=== PATIENT | female | born 1990 | race African-American/Black ===

== ENCOUNTER 2022-08-31 02:19 | Inpatient (IN) | payer MEDICAID, OTHER ==
[~2022-08-31] VITALS: Ht 162.6 cm; Wt 109.9 kg
[2022-08-31 03:21] LABS: BASOPHILS % 0.7 % (0.0-2.0); EOSINOPHILS % 2.1 % (0.0-5.0); HEMATOCRIT. 35.5 % (36.0-48.0); HEMOGLOBIN. 11.6 g/dL (12.0-16.0); LYMPHOCYTES % 28.5 % (20.0-50.0); MEAN CORPUSCULAR VOLUME 82.8 fL (81.0-99.0); MONOCYTES % 7.7 % (2.0-8.0); PLATELET 348 x1000/uL (130-400); RED BLOOD CELL COUNT 4.29 mill/uL (4.2-5.4); RED CELL DISTRIBUTION WIDTH 14.8 % (11.6-14.6)
[2022-08-31 03:33] LABS: CHLORIDE 110 mEq/L (98-107)
[2022-08-31] MEDS ORDERED: IBUPROFEN 400MG TABLET PO ONE (09:30)
[2022-08-31] MEDS ORDERED: METOCLOPRAMIDE HCL 10MG TABLET PO ONE (09:30)
[2022-08-31 12:31] LABS: CLARITY URINE CLEAR (CLEAR); COLOR URINE YELLOW (YELLOW); KETONES URINE NEGATIVE (NEGATIVE); LEUKOCYTE ESTERASE URINE NEGATIVE (NEGATIVE); NITRITE URINE NEGATIVE (NEGATIVE); OCCULT BLOOD URINE NEGATIVE (NEGATIVE); PH URINE 5.5 (4.5-8.0); PROTEIN URINE NEGATIVE (NEGATIVE); SPECIFIC GRAVITY URINE 1.026 (1.005-1.030); UROBILINOGEN URINE 0.2 E.U./dL (0.2-1.0)
[2022-08-31] MEDS ORDERED: KETOROLAC 30MG/ML VIAL IV PRN (13:00)
[2022-08-31 16:15] VITALS: BP 146/91; PULSE 63; RESP 18; TEMP 98.2
[2022-08-31 17:50] VITALS: BP 142/91
[2022-08-31 18:44] VITALS: BP 141/91; PULSE 56; TEMP 98.1; O2SAT 98
[2022-08-31 20:00] VITALS: BP 140/85; PULSE 80; RESP 18; TEMP 98
[2022-08-31 21:15] LABS: HEPATITIS B SURFACE ANTIGEN NEGATIVE
== END 2022-08-31 20:25 | disposition home or self-care (01) | DRG 48 ==
LOC: ER 02:19 → 7WST 12:31 → EDBEDREQTM 12:44 → EDBEDREQ 12:44
PROVIDERS: ADMIT Internal Medicine; ATTEND Internal Medicine
DX: G90.8 Other disorders of autonomic nervous system (principal); E66.01 Morbid (severe) obesity due to excess calories; F41.9 Anxiety disorder, unspecified; I10 Essential (primary) hypertension; G43.909 Migraine, unspecified, not intractable, without status migrainosus; Z68.41 Body mass index [BMI] 40.0-44.9, adult
CPT/HCPCS: 36415; 71045; 80053; 81003; 84484; 85025; 85379; 86803; 87340; 93005; 99285; J8597

== ENCOUNTER 2023-08-12 10:34 | Emergency (ER) | payer MEDICAID ==
[~2023-08-12] VITALS: Ht 162.6 cm; Wt 117.9 kg
[2023-08-12 10:57] VITALS: O2SAT 98
[2023-08-12] MEDS: TETRACAINE 0.5% OPHTH DROPS 4ML RIGHTEYE ONE (11:00)
[2023-08-12] MEDS: FLUORESCEIN SODIUM 1MG/STRIP RIGHTEYE ONE (11:00)
[2023-08-12] MEDS ORDERED: CIPR2.5D20 RIGHTEYE (11:45)
[2023-08-12 11:57] VITALS: BP 165/111; PULSE 99; RESP 16; TEMP 98.3
== END 2023-08-12 12:58 | disposition home or self-care (01) ==
LOC: ER 12:14
DX: S05.01XA Injury of conjunctiva and corneal abrasion without foreign body, right eye, initial encounter (principal); F19.90 Other psychoactive substance use, unspecified, uncomplicated; X58.XXXA Exposure to other specified factors, initial encounter; Y93.89 Activity, other specified; Y92.89 Other specified places as the place of occurrence of the external cause; Y99.8 Other external cause status
CPT/HCPCS: 99283

== ENCOUNTER 2023-09-14 20:24 | Emergency (ER) | payer MEDICAID ==
[~2023-09-14] VITALS: Ht 162.6 cm; Wt 118.0 kg
[~2023-09-14 20:24] MED LIST: CIPR2.5D20 RIGHTEYE
[2023-09-14 20:43] VITALS: O2SAT 98
[2023-09-14] MEDS ORDERED: FLUORESCEIN SODIUM 1MG/STRIP LEFTEYE ONE (21:45)
[2023-09-14] MEDS ORDERED: TETRACAINE 0.5% OPHTH DROPS 4ML LEFTEYE ONE (21:45)
[2023-09-14] MEDS ORDERED: LORA10TA7 MT (22:56)
[2023-09-14] MEDS ORDERED: ERYT1OIN6 LEFTEYE (22:56)
[2023-09-14 23:37] VITALS: BP 160/104; PULSE 91; RESP 16; TEMP 36.78072; O2SAT 97
== END 2023-09-14 23:34 | disposition home or self-care (01) ==
LOC: ER 20:24
DX: H10.9 Unspecified conjunctivitis (principal)
CPT/HCPCS: 99283

== ENCOUNTER 2023-09-28 02:58 | Emergency (ER) | payer MEDICAID ==
[~2023-09-28] VITALS: Ht 162.6 cm; Wt 122.0 kg
[~2023-09-28 02:58] MED LIST changes: +ERYT1OIN6 LEFTEYE; +LORA10TA7 MT
[2023-09-28 03:10] VITALS: O2SAT 100
[2023-09-28] MEDS ORDERED: IBUP-2029 MT (04:15)
[2023-09-28] MEDS ORDERED: AMOX1TAB16 MT (04:15)
[2023-09-28] MEDS: TETANUS, DIPHTHERIA, PERTUSSIS VAC/PF 0.5ML (>10YR OLD) IM ONE (04:43)
[2023-09-28 04:45] VITALS: BP 140/81; PULSE 92; RESP 20; TEMP 37.11408; O2SAT 99
== END 2023-09-28 04:47 | disposition home or self-care (01) ==
LOC: ER 02:58
DX: S81.851A Open bite, right lower leg, initial encounter (principal); W54.0XXA Bitten by dog, initial encounter; Y93.89 Activity, other specified; Y92.89 Other specified places as the place of occurrence of the external cause; Y99.8 Other external cause status
CPT/HCPCS: 90471; 90715; 99283